=== PATIENT | male | born 1980 | race Two or more races ===

== ENCOUNTER 2024-09-14 03:31 | Emergency (ER) | payer OTHER ==
[~2024-09-14] VITALS: Ht 177.8 cm; Wt 131.5 kg
[2024-09-14] MEDS ORDERED: ONDANSETRON HCL/PF 4 MG/2 ML VIAL ONE (05:36)
[2024-09-14] MEDS ORDERED: MORPHINE SULFATE INJ 4 MG/ML DISP.SYRIN ONE (05:36)
[2024-09-14] MEDS: ONDANSETRON HCL/PF 4 MG/2 ML VIAL IVP ONE (05:47)
[2024-09-14] MEDS: IV NS 0.9% 1,000 ML BAG IV ONE (05:47)
[2024-09-14] MEDS: MORPHINE SULFATE INJ 2 MG/ML DISP.SYRIN IV ONE (05:47)
[2024-09-14 05:55] LABS: BASOPHILS % (AUTO) 0.3 % (0.0-2.0); EOSINOPHILS % (AUTO) 0.2 % (0.0-6.0); HEMATOCRIT 42 % (39-51); LYMPHOCYTES # (AUTO) 1.6 K/uL (0.8-4.8); LYMPHOCYTES % (AUTO) 18.6 % (20.0-44.0); MEAN CORPUSCULAR HEMOGLOBIN 22 PG (26.0-33.0); MEAN CORPUSCULAR HGB CONC 31 g/dl (31.0-36.0); MEAN CORPUSCULAR VOLUME 70 fL (80-96); MONOCYTES # (AUTO) 0.3 K/uL (0.1-1.30); NEUTROPHILS # (AUTO) 6.5 K/uL (1.8-8.9); NEUTROPHILS % (AUTO) 76.9 % (43.0-81.0); PLATELET COUNT (AUTO) 145 K/uL (150-450); RED BLOOD CELL COUNT(AUTO) 5.93 MIL/uL (4.5-6.0); WHITE BLOOD COUNT (AUTO) 8.4 K/uL (4.3-11.0)
[2024-09-14 06:02] LABS: CALCIUM, SERUM 9.1 mg/dL (8.5-10.1); CREATININE 0.9 mg/dL (0.6-1.3); POTASSIUM 3.5 mmol/L (3.5-5.1)
[2024-09-14 06:12] LABS: ALBUMIN 4.1 g/dL (3.4-5.0); BILIRUBIN,DIRECT 0.1 mg/dL (0.0-0.2); BILIRUBIN,TOTAL 0.6 mg/dL (0.2-1.0); TOTAL PROTEIN, SERUM 7.2 g/dL (6.4-8.2)
[2024-09-14 07:43] LABS: APPEARANCE,URINE CLEAR (CLEAR); BILIRUBIN,URINE NEGATIVE (NEGATIVE); BLOOD, URINE 3+ Ery/uL (NEGATIVE); COLOR,URINE DARK YELLOW (YELLOW); KETONES,URINE 1+ mg/dL (NEGATIVE); LEUKOCYTE ESTERASE ,URINE NEGATIVE (NEGATIVE); NITRITE, URINE NEGATIVE (NEGATIVE); PH,URINE 5.5 (5.0-8.0); PROTEIN,URINE 1+ mg/dl (NEGATIVE); UGLUCOSE NEGATIVE (NEGATIVE); UROBILINOGEN,URINE 0.2 EU/dL (0.2)
[2024-09-14 07:50] VITALS: BP 109/78; TEMP 98.2; O2SAT 98
[2024-09-14 07:52] LABS: RBC,URINE 21-50 /HPF (0-2)
[2024-09-14 07:53] LABS: ADD URINE CULTURE NO; BACTERIA,URINE Rare /HPF (None Seen); SQUAMOUS EPITHELIAL CELL,UR 0-2 /HPF (None Seen); URINE AMORPHOUS URATE Moderate /HPF (None Seen); WBC,URINE 0-2 /HPF (0-3)
[2024-09-14] MEDS ORDERED: LEVO500T90 PO (08:13)
== END 2024-09-14 08:20 | disposition home or self-care (01) ==
LOC: ER 03:51
DX: R10.12 Left upper quadrant pain (principal); R10.11 Right upper quadrant pain; R31.9 Hematuria, unspecified
CPT/HCPCS: 99285; 74176; 96374; 96361; 96375; 85025; 80048; 87086; 83690; 80076; 81001; 36415; J2270; J2405